=== PATIENT | male | born 1960 | race Hispanic/Latino ===

== ENCOUNTER 2024-10-13 01:36 | Emergency (ER) | payer OTHER ==
[~2024-10-13] VITALS: Ht 167.6 cm; Wt 95.3 kg
[2024-10-13 01:50] VITALS: RESP 16; TEMP 98.3
[2024-10-13 03:05] VITALS: PULSE 76
[2024-10-13 03:32] VITALS: BP 121/68; PULSE 75; RESP 17; TEMP 98.6; O2SAT 98
== END 2024-10-13 03:32 | disposition home or self-care (01) ==
LOC: ER 01:45
DX: M25.511 Pain in right shoulder (principal); M19.011 Primary osteoarthritis, right shoulder; I10 Essential (primary) hypertension
CPT/HCPCS: 99283